=== PATIENT | female | born 1975 | race Caucasian/White ===

== ENCOUNTER 2021-10-16 12:59 | Emergency (ER) | payer OTHER ==
[~2021-10-16] VITALS: Ht 162.6 cm; Wt 64.0 kg
[2021-10-16] MEDS ORDERED: ACETAMINOPHEN 325MG TABLET PO ONE (13:45)
[2021-10-16] MEDS ORDERED: ACET-2708 MT (15:00)
[2021-10-16 15:10] VITALS: BP 134/62
== END 2021-10-16 15:19 | disposition home or self-care (01) ==
LOC: ER 12:59
DX: M79.602 Pain in left arm (principal); V43.52XA Car driver injured in collision with other type car in traffic accident, initial encounter; Y93.89 Activity, other specified; Y92.410 Unspecified street and highway as the place of occurrence of the external cause
CPT/HCPCS: 71045; 73030; 73060; 73090; 99284